=== PATIENT | female | born 1945 | race Caucasian/White ===

== ENCOUNTER → 2019-11-20 12:08 | Outpatient (CLI) | payer MEDICARE, SELFPAY ==
[2019-11-20 11:45] VITALS: BMI 43.8
[2019-11-20 13:03] LABS: Vitamin D,25 Hydroxy 15.6 ng/mL
== END ==
PROVIDERS: PCP Internal Medicine; Referring Provider Internal Medicine Endocrinology, Diabetes & Metabolism; Visit Provider Internal Medicine Endocrinology, Diabetes & Metabolism
DX: E55.9 Vitamin D deficiency, unspecified (principal)
CPT/HCPCS: 36415; 82306